=== PATIENT | female | born 1985 | race Caucasian/White ===

== ENCOUNTER 2017-11-12 15:21 | Emergency (ER) | payer SELFPAY ==
[~2017-11-12] VITALS: Ht 157.5 cm; Wt 72.6 kg
[~2017-11-12 15:21] MED LIST: METH4TAB10 PO; SULF1TAB35 PO
--- NOTE | 2017-11-12 15:59 | ED Headache ---
General Stated Complaint: HEADACHE Source: patient Exam Limitations: no limitations History of Present Illness Time seen by provider: 15:57 Initial Comments To ER with an occipital headache and pain in her neck for one week. No fevers or chills. No recent illness. No head injury. No history of headaches. She states the pain is better if she holds her neck to the right side. She has attempted massage at home without improvement. No nausea or vomiting. Severity/Quality: moderate Location: occipital Associated Symptoms: No confusion, No nausea/vomiting, No stiff neck Allergies and Home Medications Allergies Coded Allergies: No Known Drug Allergies (Unverified , 07/04/15) Home Medications Sulfamethoxazole/Trimethoprim 1 Each Tablet, 1 EACH PO BID, #20 Prescribed by: DONIS VALERIO on 08/19/15 0957 Constitutional: see HPI Eyes: No Symptoms Reported Ears, Nose, Mouth, Throat: no symptoms reported Respiratory: no symptoms reported Cardiovascular: no symptoms reported (the) Genitourinary: no symptoms reported Musculoskeletal: see HPI, neck pain Skin: no symptoms reported Psychiatric/Neurological: Headache Past Yryxlua-Mzyhck-Kqrvte Hx Patient Social History Recent Foreign Travel: No Contact w/Someone Who Travel: No Blood Transfusions Adverse Reaction to a Blood Tr: No Family Medical History Significant Family History: No Pertinent Family Hx Physical Exam Vital Signs Capillary Refill : General Appearance: WD/WN, no apparent distress HEENT: PERRL/EOMI, normal ENT inspection Neck: non-tender, full range of motion Cardiovascular: regular rate, rhythm, no murmur Respiratory: normal breath sounds, no respiratory distress, no accessory muscle use Gastrointestinal: normal bowel sounds, non tender Extremities: normal range of motion, non-tender, normal inspection Psychiatric: alert, oriented x 3 Crainal Nerves: normal hearing, normal speech, PERRL Motor/Sensory: no motor deficit, no sensory deficit Skin: normal color, warm/dry Departure Impression Impression: Primary Impression: Tension headache Disposition: 01 HOME, SELF-CARE Condition: Stable Departure-Patient Inst. Decision time for Depature: 15:59 Referrals: NO,LOCAL PHYSICIAN (PCP/Family) Primary Care Physician Patient Instructions: Tension Headache Add. Discharge Instructions: 1. Return to ER for any concerns 2. Tylenol and Motrin as needed for pain control 3. VLADIMIR HOLLAND APRN Nov 12, 2017 15:59
[2017-11-12] MEDS ORDERED: ORPHENADRINE 60 MG/2 ML (NORFLEX) AMP IM ONE (16:00)
[2017-11-12] MEDS ORDERED: KETOROLAC 60 MG/2 ML VIAL IM ONE (16:00)
[2017-11-12 16:13] VITALS: BP 134/107
== END 2017-11-12 16:13 | disposition home or self-care (01) ==
LOC: EDUNIT# 15:21 → ER 15:23
DX: G44.209 Tension-type headache, unspecified, not intractable (principal)
CPT/HCPCS: 96372; 99284

== ENCOUNTER 2017-11-12 17:18 | Emergency (ER) | payer SELFPAY ==
[~2017-11-12] VITALS: Ht 157.5 cm; Wt 68.0 kg
--- OUTSIDE RECORDS SUMMARY | 2017-11-12 17:23 | XMS REPORT | Continuity of Care Document ---
Author Author [facility] Organization [facility] Address Unknown Phone Unavailable Allergies Active Description Code Type Severity Reaction Onset Reported/Identified Relationship to Patient Clinical Status Yes No Known Drug Allergies [id number] Drug Allergy Unknown N/A 07/04/2015 Medications There is no data. Problems Date Dx Coded Attending Type Code Diagnosis Diagnosed By 07/04/2015 VLADIMIR HOLLAND APRN Ot 692.9 07/04/2015 VLADIMIR HOLLAND APRN Ot 782.1 08/19/2015 ASAD BETANCOURT, DONIS Larios Ot L02.411 Procedures There is no data. Results There is no data. Encounters ACCT No. Visit Date/Time Discharge Status Pt. Type Provider Facility Loc./Unit Complaint [id number] 01/23/2016 10:11:00 01/23/2016 23:59:59 CLS Outpatient IWONA HERRING APRN [facility] RAD [id number] 08/19/2015 08:11:00 08/19/2015 09:55:00 DIS Emergency ASAD BETANCOURT, DONIS Larios [facility] ER [id number] 07/04/2015 19:34:00 07/04/2015 19:59:00 DIS Emergency VLADIMIR HOLLAND APRN [facility] ER
--- OUTSIDE RECORDS SUMMARY | 2017-11-12 17:23 | XMS REPORT ---
Author CRISTINA Henderson Organization [employer] Address Unknown Phone Unavailable Care Team Providers Care Legal Cashier Name Role Phone CRISTINA ZELAYA CP Unavailable Allergies No Known Allergies Problems Problem Type Condition Code Onset Dates Condition Status Problem BMI 30.0-30.9,adult Z68.30 Active Problem Breast asymmetry N64.89 Active Problem Family history of diabetes mellitus Z83.3 Active Problem History of tubal ligation Z98.51 Active Problem Desire for Z31.9 Active Medications No Known Medications Results No Known Results Summary Purpose [employer] Submission
--- OUTSIDE RECORDS SUMMARY | 2017-11-12 17:23 | XMS REPORT ---
Author Author AMANDA OAKLEY Organization [employer] Address Unknown Phone Unavailable Care Team Providers Care [employer] Registrar Name Role Phone AMANDA OAKLEY CP Unavailable Allergies, Adverse Reactions, Alerts Substance Reaction Event Type N.K.D.A. Info Not Available Non Drug Allergy Problems Problem Type Condition Code Onset Dates Condition Status Assessment Dental examination Z01.20 Active Medications Medication Code System Code Instructions Start Date End Date Status Dosage Amoxicillin [facility] [address]-77 500 MG Orally Three times a day 1 capsule Procedures Procedure Coding System Code Date INTRAORL-PERIAPICAL 1 FILM 40111 CPT-4 D0220 Nov 24, 2015 INTRAORL-PERIAPICAL EA ADD FILM CPT-4 D0230 Nov 24, 2015 LTD ORAL EVALUATION - PROBLEM FOCUS CPT-4 D0140 Nov 24, 2015 Vital Signs Date/Time: Nov 24, 2015 Blood Pressure Diastolic 79 mmHg Blood Pressure Systolic 109 mmHg Results No Known Results Summary Purpose [employer] Submission
--- NOTE | 2017-11-12 18:12 | ED General ---
General Chief Complaint: Psych/Social Disorder Stated Complaint: ANXIETY Source of Information: Patient Exam Limitations: No Limitations History of Present Illness Time Seen by Provider: 18:04 Initial Comments Here with report of fast heart rate and feeling central chest burning or heat. States that she feels kind of funny. She was here earlier today for headache and did receive Toradol and Norflex IM. This has resolved her headache completely better afterwards she had this feeling and that brought her back. She states she was looking on the Internet and thought she might be having a heart attack or something worse. It scared her so she came back for evaluation. Denies breathing problems, vomiting or weakness. Timing/Duration: 1-3 Hours Severity: Moderate Associated Systoms: Chest Pain, No Cough, No Fever/Chills, No Nausea/Vomiting, No Shortness of Air, No Weakness Allergies and Home Medications Allergies Coded Allergies: No Known Drug Allergies (Unverified , 07/04/15) Home Medications No Active Prescriptions or Reported Meds Constitutional: see HPI, No fever, No weakness EENTM: no symptoms reported Respiratory: no symptoms reported, No short of breath, No wheezing Cardiovascular: chest pain, palpitations Gastrointestinal: No nausea, No vomiting Genitourinary: no symptoms reported Musculoskeletal: see HPI, muscle pain Skin: no symptoms reported Psychiatric/Neurological: See HPI, Anxiety, Headache, Numbness (left arm earlier today but resolved) Hematologic/Lymphatic: No Symptoms Reported Immunological/Allergic: no symptoms reported All Other Systems Reviewed Negative Unless Noted: Yes Past Rngsnbt-Ogysuu-Fxmbqa Hx Patient Social History Alcohol Use: Occasionally Uses Recreational Drug Use: No Smoking Status: Never a Smoker Recent Foreign Travel: No Contact w/Someone Who Travel: No Surgeries History of Surgeries: Yes Surgeries: Tubal Ligation Respiratory History of Respiratory Disorde: No Cardiovascular History of Cardiac Disorders: No Neurological History of Neurological Disord: No 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 Genitourinary History of Genitourinary Disor: No Gastrointestinal History of Gastrointestinal Di: No Musculoskeletal History of Musculoskeletal Dis: No Endocrine History of Endocrine Disorders: No Cancer History of Cancer: No Psychosocial History of Psychiatric Problem: No Integumentary History of Skin or Integumenta: No Blood Transfusions History of Blood Disorders: No Adverse Reaction to a Blood Tr: No Reviewed Nursing Assessment Reviewed/Agree w Nursing PMH: Yes Family Medical History Significant Family History: Diabetes, Hypertension Physical Exam Vital Signs Vital Sign - Last 12Hours 11/12/17 18:39 Temp 97.2 Pulse 90 Resp 16 B/P (MAP) 120/82 (95) Pulse Ox 100 Capillary Refill : General Appearance: No Apparent Distress, WD/WN HEENT: PERRL/EOMI, Pharynx Normal Neck: Full Range of Motion, Normal Inspection, Non Tender, Supple Respiratory: Lungs Clear, Normal Breath Sounds Cardiovascular: No Murmur, Tachycardia Gastrointestinal: Non Tender, Soft Back: Normal Inspection, No CVA Tenderness, No Vertebral Tenderness Extremity: Normal Range of Motion, Non Tender Neurologic/Psychiatric: Alert, Oriented x3 Skin: Normal Color, Warm/Dry Progress/Results/Core Measures Suspected Sepsis SIRS Temperature: Pulse: Respiratory Rate: Laboratory Tests 11/12/17 18:34: White Blood Count 8.7 Blood Pressure / Mean: Laboratory Tests 11/12/17 18:34: Creatinine 0.69, Platelet Count 341, Total Bilirubin 0.8 Results/Orders Lab Results Laboratory Tests Test 11/12/17 18:34 Range/Units White Blood Count 8.7 4.3-11.0 10^3/uL Red Blood Count 4.69 4.35-5.85 10^6/uL Hemoglobin 14.4 11.5-16.0 G/DL Hematocrit 41 35-52 % Mean Corpuscular Volume 88 80-99 FL Mean Corpuscular Hemoglobin 31 25-34 PG Mean Corpuscular Hemoglobin Concent 35 32-36 G/DL Red Cell Distribution Width 12.3 10.0-14.5 % Platelet Count 341 130-400 10^3/uL Mean Platelet Volume 9.9 7.4-10.4 FL Neutrophils (%) (Auto) 73 42-75 % Lymphocytes (%) (Auto) 20 12-44 % Monocytes (%) (Auto) 7 0-12 % Eosinophils (%) (Auto) 0 0-10 % Basophils (%) (Auto) 0 0-10 % Neutrophils # (Auto) 6.4 1.8-7.8 X 10^3 Lymphocytes # (Auto) 1.7 1.0-4.0 X 10^3 Monocytes # (Auto) 0.6 0.0-1.0 X 10^3 Eosinophils # (Auto) 0.0 0.0-0.3 10^3/uL Basophils # (Auto) 0.0 0.0-0.1 10^3/uL D-Dimer < 0.27 0.00-0.49 UG/ML Sodium Level 139 135-145 MMOL/L Potassium Level 3.1 L 3.6-5.0 MMOL/L Chloride Level 103 98-107 MMOL/L Carbon Dioxide Level 26 21-32 MMOL/L Anion Gap 10 5-14 MMOL/L Blood Urea Nitrogen 6 L 7-18 MG/DL Creatinine 0.69 0.60-1.30 MG/DL Estimat Glomerular Filtration Rate > 60 BUN/Creatinine Ratio 9 Glucose Level 99 70-105 MG/DL Calcium Level 9.4 8.5-10.1 MG/DL Total Bilirubin 0.8 0.1-1.0 MG/DL Aspartate Amino Transf (AST/SGOT) 23 5-34 U/L Alanine Aminotransferase (ALT/SGPT) 27 0-55 U/L Alkaline Phosphatase 85 40-136 U/L Total Protein 7.7 6.4-8.2 GM/DL Albumin 3.9 3.2-4.5 GM/DL My Orders Orders - ADALBERTO JUDGE MD Ekg Tracing (11/12/17 18:10) Saline Lock/Iv-Start (11/12/17 18:25) Ns Iv 1000 Ml (Sodium Chloride 0.9%) (11/12/17 18:25) Cbc With Automated Diff (11/12/17 18:25) Comprehensive Metabolic Panel (11/12/17 18:25) Fibrin Degradation Products (11/12/17 18:25) Troponin I (11/12/17 18:25) Chest Pa/Lat (2 View) (11/12/17 18:25) Medications Given in ED Current Medications Medications Dose Ordered Sig/Kenny Route Start Time Stop Time Status Last Admin Dose Admin Sodium Chloride 1,000 ml @ 0 mls/hr Q0M ONCE IV 11/12/17 18:25 11/12/17 18:26 DC 11/12/17 19:20 0 MLS/HR Vital Signs/I&O Vital Sign - Last 12Hours 11/12/17 18:39 Temp 97.2 Pulse 90 Resp 16 B/P (MAP) 120/82 (95) Pulse Ox 100 Capillary Refill : Progress Note : Progress Note Seen and evaluated. EKG done. There is some questionable Q waves in the inferior leads in the setting of tachycardia. We will get further evaluation. Chest x-ray, labs, normal saline 1 L bolus ordered. Monitor patient. 1923: No acute findings. No indications of blood clot or cardiac disorder. Discharged home with return precautions. Patient verbalize understanding instructions and agreement with plan. ECG Initial ECG Impression Date: Nov 12, 2017 Initial ECG Impression Time: 18:14 Initial ECG Rate: 87 Initial ECG Rhythm: Normal Sinus Comment Sinus rhythm with left atrial abnormality. Q waves in the inferior leads with questionable T-wave inversion in lead 3. No evidence of ST elevation FL. No previous available for comparison. Interpreted by me. Diagnostic Imaging Diagonstic Imaging: Xray Plain Films/CT/US/NM/MRI: chest Comments VIA [facility]. [place], [place] NAME: NEMO AVALOS [facility] REC#: [id number] PT STATUS: REG ER : 1985 PHYSICIAN: ADALBERTO JUDGE MD ADMIT DATE: 11/12/17/ER Draft Date of Exam:11/12/17 CHEST PA/LAT (2 VIEW) INDICATION: Tachycardia, anxiety, right arm numbness. EXAMINATION: 2 view chest, 11/12/2017. COMPARISONS: None. FINDINGS: The cardiomediastinal silhouette is unremarkable. The pulmonary vasculature is within normal limits. The lungs and pleural spaces are clear. IMPRESSION: No evidence of an acute cardiopulmonary process. Dictated on workstation # [id number] Dict: 11/12/171900 Trans: 11/12/171907 [id number] Interpreted by: ZAC CARRILLO MD Electronically signed by: Departure Impression Impression: Primary Impression: Anxiety Additional Impression: Chest pain Qualified Codes: R07.9 - Chest pain, unspecified Disposition: 01 HOME, SELF-CARE Condition: Improved Departure-Patient Inst. Decision time for Depature: 19:24 Referrals: NO,LOCAL PHYSICIAN (PCP/Family) Primary Care Physician Patient Instructions: Anxiety, Adult (DC), Chest Pain (DC) Add. Discharge Instructions: All discharge instructions reviewed with patient and/or family. Voiced understanding. Drink plenty of fluids and get rest. Follow-up with her doctor in a few days for recheck. Return for worse pain, fever, vomiting, weakness, breathing problems or other concerns as needed. Scripts No Active Prescriptions or Reported Meds ADALBERTO JUDGE MD Nov 12, 2017 18:12
[2017-11-12] MEDS ORDERED: NS IV 1000 ML 1,000 ML IV ONE (18:25)
[2017-11-12 18:56] LABS: BASOPHILS % (AUTO) 0 % (0-10); EOSINOPHILS % (AUTO) 0 % (0-10); LYMPHOCYTES # (AUTO) 1.7 X 10^3 (1.0-4.0); LYMPHOCYTES % (AUTO) 20 % (12-44); MEAN CORPUSCULAR HEMOGLOBIN 31 PG (25-34); MEAN CORPUSCULAR HGB CONC 35 G/DL (32-36); MEAN CORPUSCULAR VOLUME 88 FL (80-99); MEAN PLATELET VOLUME 9.9 FL (7.4-10.4); MONOCYTES # (AUTO) 0.6 X 10^3 (0.0-1.0); MONOCYTES % (AUTO) 7 % (0-12); NEUTROPHILS # (AUTO) 6.4 X 10^3 (1.8-7.8); NEUTROPHILS % (AUTO) 73 % (42-75); PLATELET COUNT 341 10^3/uL (130-400); RED BLOOD COUNT 4.69 10^6/uL (4.35-5.85); RED CELL DISTRIBUTION WIDTH 12.3 % (10.0-14.5); WHITE BLOOD COUNT 8.7 10^3/uL (4.3-11.0)
--- NOTE | 2017-11-12 19:09 | Diagnostic Imaging Report ---
INDICATION: Tachycardia, anxiety, right arm numbness. EXAMINATION: 2 view chest, 11/12/2017. COMPARISONS: None. FINDINGS: The cardiomediastinal silhouette is unremarkable. The pulmonary vasculature is within normal limits. The lungs and pleural spaces are clear. IMPRESSION: No evidence of an acute cardiopulmonary process. Dictated by: Dictated on workstation # [id number]
[2017-11-12 19:16] LABS: ALANINE AMINOTRANSFERASE 27 U/L (0-55); ALBUMIN 3.9 GM/DL (3.2-4.5); ANION GAP 10 MMOL/L (5-14); ASPARTATE AMINO TRANSFERASE 23 U/L (5-34); BILIRUBIN,TOTAL 0.8 MG/DL (0.1-1.0); BLOOD UREA NITROGEN 6 MG/DL (7-18); BUN/CREATININE RATIO 9; CALCIUM 9.4 MG/DL (8.5-10.1); CARBON DIOXIDE 26 MMOL/L (21-32); CHLORIDE 103 MMOL/L (98-107); CREATININE SERUM 0.69 MG/DL (0.60-1.30); GFR ESTIMATED > 60; GLUCOSE 99 MG/DL (70-105); POTASSIUM 3.1 MMOL/L (3.6-5.0); SODIUM 139 MMOL/L (135-145); TOTAL PROTEIN 7.7 GM/DL (6.4-8.2)
[2017-11-12 19:21] LABS: TROPONIN I < 0.30 NG/ML (<0.30)
[2017-11-12 19:53] VITALS: BP 132/74
== END 2017-11-12 19:53 | disposition home or self-care (01) ==
LOC: EDUNIT# 17:18 → ER 17:19
DX: R41.9 Unspecified symptoms and signs involving cognitive functions and awareness (principal); R07.9 Chest pain, unspecified; Z98.51 Tubal ligation status
CPT/HCPCS: 36415; 71020; 80053; 84484; 85025; 85379; 93005; 96360

== ENCOUNTER 2017-11-15 15:16 | Emergency (ER) | payer SELFPAY ==
[~2017-11-15] VITALS: Ht 157.5 cm; Wt 68.0 kg
[2017-11-15] MEDS ORDERED: KETOROLAC 60 MG/2 ML VIAL IM STA (16:09)
--- NOTE | 2017-11-15 16:16 | ED Headache ---
General Chief Complaint: Head/Cervical Problems Stated Complaint: L ARM TINGLING/NUMB, NECK PAIN Nursing Triage Note: AMB TO ROOM C/O HEAD AND NECK PAIN FOR 2WEEKS. TODAY SINCE ABOUT 8A HAS FELT TINGLING DOWN L ARM. REPORTS ANXIOUS. JUST WANT TO MAKE SURE EVERYTHING OK. HAD NOT TAKEN ANY MEDS FOR HEADACHE. Nursing Sepsis Screen: No Definite Risk Source: patient Exam Limitations: no limitations History of Present Illness Time seen by provider: 15:55 Initial Comments Here with report of tension in her neck and shoulders that goes up. Her neck and over her scalp causing a headache. She then gets to thinking about that and worrying and the tension gets worse and then she feels numbness or tingling to her left arm. She looked this up on the Internet and that made things worse. She states that she believes is probably just anxiety due to stress in her life including her being in [facility] but she was worried so she presented for evaluation. She is given a go to [facility] for evaluation for anxiety after the holiday. Denies nausea or vomiting. Denies other problems. Timing/Duration: 1 week, episodic Severity/Quality: moderate, achy Location: occipital Prior Headaches/Recent Trauma: occasional headaches Associated Symptoms: No confusion, No fever/chills, No nausea/vomiting, No stiff neck, No weakness Allergies and Home Medications Allergies Coded Allergies: No Known Drug Allergies (Unverified , 07/04/15) Home Medications No Active Prescriptions or Reported Meds Constitutional: see HPI, No chills, No fever Eyes: No Symptoms Reported Ears, Nose, Mouth, Throat: no symptoms reported Respiratory: no symptoms reported Cardiovascular: no symptoms reported Gastrointestinal: No nausea, No vomiting Musculoskeletal: see HPI, muscle pain, No muscle weakness, neck pain Skin: no symptoms reported Psychiatric/Neurological: See HPI, Anxiety, Headache, Denies Weakness Past Xgptpvz-Xrpfwm-Gmyqxp Hx Patient Social History Alcohol Use: Occasionally Uses Recreational Drug Use: No Smoking Status: Former Smoker Type Used: Cigarettes Former Smoker, Quit: Oct 17, 2017 Recent Foreign Travel: No Contact w/Someone Who Travel: No Recent Infectious Disease Expo: No Surgeries History of Surgeries: Yes Surgeries: Tubal Ligation Respiratory History of Respiratory Disorde: No Cardiovascular History of Cardiac Disorders: No Neurological History of Neurological Disord: No 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 Genitourinary History of Genitourinary Disor: No Gastrointestinal History of Gastrointestinal Di: No Musculoskeletal History of Musculoskeletal Dis: No Endocrine History of Endocrine Disorders: No Cancer History of Cancer: No Psychosocial History of Psychiatric Problem: No Integumentary History of Skin or Integumenta: No Blood Transfusions History of Blood Disorders: No Adverse Reaction to a Blood Tr: No Reviewed Nursing Assessment Reviewed/Agree w Nursing PMH: Yes Family Medical History Significant Family History: Diabetes, Hypertension Physical Exam Vital Signs Vital Sign - Last 12Hours 11/15/17 15:35 Temp 97.9 Pulse 92 Resp 18 B/P (MAP) 134/89 (104) Capillary Refill : Less Than 3 Seconds General Appearance: WD/WN, no apparent distress HEENT: PERRL/EOMI, TMs normal, pharynx normal Neck: full range of motion, supple, tender lateral, No tender midline Cardiovascular: regular rate, rhythm, no murmur Respiratory: lungs clear, normal breath sounds Gastrointestinal: non tender, soft Back: normal inspection, no CVA tenderness, no vertebral tenderness Extremities: non-tender, normal inspection Psychiatric: alert, oriented x 3 Crainal Nerves: normal hearing, normal speech, PERRL Coordination/Gait: normal gait Motor/Sensory: no motor deficit, no sensory deficit Skin: normal color, warm/dry Progress/Results/Core Measures Results/Orders My Orders Orders - ADALBERTO JUDGE MD Ketorolac Injection (Toradol Injection) (11/15/17 16:09) Vital Signs/I&O Vital Sign - Last 12Hours 11/15/17 15:35 Temp 97.9 Pulse 92 Resp 18 B/P (MAP) 134/89 (104) Blood Pressure Mean: 104 Progress Note : Progress Note Seen and evaluated. I have seen the patient previously for similar complaint 3 days ago. Workup at that time was negative. Patient and I talked quite a bit about stressors in her life and current therapy. Also talked about the need to follow-up with her doctor for evaluation for anxiety and possibly depression. No significant or acute findings on physical exam. No indication for further workup at this time and the patient agrees and is comforted after conversation. We will give Toradol 60 mg IM as this did resolve her headache previously. Discharged home with return precautions. Patient verbalize understanding instructions and agreement with plan. Departure Impression Impression: Primary Impression: Tension type headache Qualified Codes: G44.209 - Tension-type headache, unspecified, not intractable Additional Impression: Anxiety Disposition: 01 HOME, SELF-CARE Condition: Improved Departure-Patient Inst. Decision time for Depature: 16:16 Referrals: NO,LOCAL PHYSICIAN (PCP/Family) Primary Care Physician Patient Instructions: Anxiety, Adult (DC), Tension Headache (DC) Add. Discharge Instructions: All discharge instructions reviewed with patient and/or family. Voiced understanding. Take medications as prescribed. Do not take ibuprofen with the prescribed Naprosyn as they are both similar. You may take Tylenol 1000 mg every 8 hours as needed for pain. Drink plenty of fluids. Get some rest. Follow-up with your doctor early next week for recheck and further evaluation including evaluation for anxiety and depression. Return for worse pain, fever, vomiting, weakness, breathing problems or other concerns as needed. Scripts Hydroxyzine HCl (Hydroxyzine HCl) 25 Mg Tablet 25 MG PO Q6H Y for ANXIETY, #14 TAB 0 Refills Prov: ADALBERTO JUDGE MD 11/15/17 Naproxen (Naprosyn) 500 Mg Tablet 500 MG PO BID Y for PAIN-MILD TO MODERATE, #30 TAB 0 Refills Prov: ADALBERTO JUDGE MD 11/15/17 Cyclobenzaprine HCl (Cyclobenzaprine HCl) 10 Mg Tablet 10 MG PO Q8H Y for SPASMS, #15 TAB 0 Refills Prov: ADALBERTO JUDGE MD 11/15/17 ADALBERTO JUDGE MD Nov 15, 2017 16:16
[2017-11-15] MEDS ORDERED: HYDR-700 PO (16:19)
[2017-11-15] MEDS ORDERED: NAPR-1071 PO (16:19)
[2017-11-15] MEDS ORDERED: CYCL10TA9 PO (16:19)
[2017-11-15 16:31] VITALS: BP 134/89
== END 2017-11-15 16:30 | disposition home or self-care (01) ==
LOC: EDUNIT# 15:16 → ER 15:18
DX: G44.209 Tension-type headache, unspecified, not intractable (principal); F41.9 Anxiety disorder, unspecified; Z87.891 Personal history of nicotine dependence; Z98.51 Tubal ligation status
CPT/HCPCS: 99284